=== PATIENT | male | born 1980 | race Caucasian/White ===

== ENCOUNTER 2018-01-31 07:32 | Outpatient (CLI) | payer OTHER ==
--- NOTE | 2018-01-31 13:14 | MRI Report ---
Reason: PAIN IN THORACIC SPINE Procedure Date: 01/31/2018 Accession Number: [id number] / [id number] Procedure: MRI - Cervical Spine W/O CPT Code: FULL RESULT: EXAM: MRI CERVICAL SPINE WITHOUT CONTRAST EXAM DATE: 01/31/2018 08:09 AM. CLINICAL HISTORY: Arm numbness. Tenderness base of neck and mid neck. Pain in thoracic spine COMPARISONS: None. TECHNIQUE: Multiplanar, multisequence T1-weighted and fluid-sensitive sequences of the cervical spine without contrast. Other: None. FINDINGS: There is solid osseous fusion across the posterior aspect of the C2-C3 disk space. There is solid osseous fusion across the posterior elements at C2-C3 on the left. There is posterior position of the lateral mass of C1 on the left relative to the base of C2. Prominent T2 hyperintense signal dorsal to the C2 and C3 vertebral bodies is felt to reflect prominent venous plexus. No suspicious marrow replacement is present in the cervical vertebral bodies. No abnormal T2 signal is present in the cervical spinal cord. C2-C3: No central canal or foraminal stenosis. C3-C4: Mild facet hypertrophy is seen on the right. No posterior disk protrusion is seen. No central canal or foraminal stenosis. C4-C5: Minimal posterior disk protrusion is seen with a tiny annular fissure. C5-C6: A mild posterior disk protrusion of disk and osteophyte is seen towards the left with extension into the left foramen and left uncovertebral joint spurring noted. There is flattening of the left ventral cervical spinal cord. No central canal or foraminal stenosis C6-C7: A mild broad-based posterior disk protrusion is seen. Superimposed is a shallow right moderate-sized posterior lateral and foraminal protrusion with disk ventral exiting inferior to the disk space. There is mass effect on the right ventral cervical spinal cord. There is severe right foraminal stenosis. C7-T1: No posterior disk protrusion. T2 hyperintense signal is seen in the visualized right maxillary sinus. This could reflect mucosal thickening or retention cyst/polyp formation. IMPRESSION: 1. A moderate right-sided disk protrusion demonstrates mass effect on the right ventral cervical spinal cord and extends into the right foramen resulting in severe right foraminal stenosis. 2. A left-sided protrusion of disk and osteophyte at C5-C6 minimally flattens the left ventral cervical spinal cord. 3. 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 4. 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 [facility]
== END 2018-01-31 07:33 | disposition home or self-care (01) ==
LOC: DI 07:32
PROVIDERS: ATTEND Family Medicine
DX: M50.221 Other cervical disc displacement at C4-C5 level (principal); M47.9 Spondylosis, unspecified
CPT/HCPCS: 72141